=== PATIENT | male | born 1985 | race African-American/Black ===

== ENCOUNTER 2016-05-30 16:10 | Emergency (ER) ==
[2016-05-30 16:21] VITALS: BP 119/69
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
== END 2016-05-30 17:24 | disposition home or self-care (01) ==
LOC: P.ED 16:10
DX: B34.9 Viral infection, unspecified (principal); R05 Cough; R09.81 Nasal congestion; R50.9 Fever, unspecified; M79.1 Myalgia; R53.1 Weakness; G82.20 Paraplegia, unspecified; Z79.899 Other long term (current) drug therapy; Z87.891 Personal history of nicotine dependence
CPT/HCPCS: 87804; 99283